=== PATIENT | male | born 1960 | race Caucasian/White ===

== ENCOUNTER 2019-07-15 14:53 | Inpatient (IN) | payer OTHER ==
[~2019-07-15] VITALS: Ht 177.8 cm; Wt 146.5 kg
[2019-07-15 16:00] LABS: BASOPHILS % (AUTO) 0.5 % (0.0-5.0); EOSINOPHILS % (AUTO) 1.2 % (0.0-8.0); HEMATOCRIT 27.9 % (42-54); MEAN CORPUSCULAR HEMOGLOBIN 30.3 pg (27.0-33.0); MEAN CORPUSCULAR HGB CONC 34.1 g/dL (32.0-36.0); MEAN CORPUSCULAR VOLUME 88.9 fL (79-99); MONOCYTES % (AUTO) 6.1 % (3.0-13.0); NEUTROPHILS % (AUTO) 75.9 % (40.0-77.0); PLATELET COUNT (AUTO) 94 K/uL (130-400); RED BLOOD CELL COUNT(AUTO) 3.14 MIL/uL (4.50-6.20); RED CELL DISTRIBUTION WIDTH 13.3 % (11.0-15.5); WHITE BLOOD COUNT (AUTO) 8.3 K/uL (4.8-10.8)
[2019-07-15 16:21] LABS: CREATININE 1.5 mg/dL (0.5-1.5); POTASSIUM 3.8 mmol/L (3.5-5.1)
[2019-07-15 16:23] LABS: INR 0.93 (0.85-1.15); PARTIAL THROMBOPLASTIN TIME 34.5 SEC (26.3-35.5); PROTHROMBIN TIME 10.1 SEC (9.6-11.6)
[2019-07-15 16:26] LABS: ALBUMIN 2.9 g/dL (3.5-5.0); BILIRUBIN,TOTAL 0.4 mg/dL (0.2-1.0); TOTAL PROTEIN, SERUM 7.4 g/dL (6.0-8.3)
[2019-07-15 16:30] LABS: B-TYPE NATRIURETIC PEPTIDE 123 pg/mL (0-100)
[2019-07-15] MEDS ORDERED: ONDANSETRON HCL 4 MG/2 ML VIAL IV PRN (18:45)
[2019-07-15] MEDS ORDERED: DEXTROSE 50%-WATER 50 ML DISP.SYRIN IV PRN (18:45)
[2019-07-15] MEDS ORDERED: NITROGLYCERIN 0.4 MG SL TAB SL PRN (18:45)
[2019-07-15] MEDS ORDERED: GLUCAGON 1MG KIT 1 MG ML IM PRN (18:45)
[2019-07-15] MEDS ORDERED: DIPHENHYDRAMINE HCL 25 MG CAPSULE PO PRN (18:45)
[2019-07-15] MEDS ORDERED: ACETAMINOPHEN 325 MG TAB PO PRN ×2 (18:45)
[2019-07-15] MEDS ORDERED: HEPARIN 25000 UNITS/250 ML D5W 250 ML IV ONE (20:02)
[2019-07-15] MEDS ORDERED: HEPARIN SODIUM 5000UNIT/ML 1ML VIAL ONE (20:02)
[2019-07-15 21:00] VITALS: BP 174/71
[2019-07-15] MEDS ORDERED: INSULIN HUMULIN R 100 UNIT/ML 3ML SQ SCH (21:00)
[2019-07-15] MEDS ORDERED: PROMETHAZINE HCL 25 MG TABLET PO PRN (21:15)
[2019-07-15] MEDS ORDERED: LORAZEPAM 2 MG/ML 1 ML VIAL IVP PRN ×2 (21:15)
[2019-07-15] MEDS ORDERED: CHLORDIAZEPOXIDE HCL 25 MG CAP PO PRN ×2 (21:15)
[2019-07-15] MEDS ORDERED: PHARMACY COMMUNICATION MISC PRN (21:15)
[2019-07-15] MEDS: FAMOTIDINE/PF 20 MG/2 ML VIAL IV SCH (21:46)
[2019-07-15] MEDS: SODIUM CHLORIDE 0.9% 1000ML 1,000 ML IV SCH (21:55)
[2019-07-15 21:59] LABS: AMPHET/METH SCREEN,URINE NEGATIVE (NEGATIVE); BARBITURATE SCREEN, URINE NEGATIVE (NEGATIVE); BENZODIAZEPINES SCREEN,URINE NEGATIVE (NEGATIVE); CANNABINOID SCREEN,URINE POSITIVE (NEGATIVE); COCAINE SCREEN,URINE NEGATIVE (NEGATIVE); OPIATE SCREEN,URINE NEGATIVE (NEGATIVE); PHENCYCLIDINE SCREEN,URINE NEGATIVE (NEGATIVE)
[2019-07-15] MEDS: CLONIDINE HCL 0.1 MG TABLET PO SCH (22:00)
[2019-07-15 22:29] LABS: PHOSPHORUS 3.2 mg/dL (2.5-4.9)
[2019-07-15 22:31] LABS: HEMOGLOBIN A1C 8.2 % (4.0-6.0)
[2019-07-15 22:37] LABS: ALCOHOL, BLOOD < 3 mg/dL (0-10)
[2019-07-15 22:54] LABS: BILIRUBIN,URINE Negative (NEGATIVE); COLOR,URINE Yellow (YELLOW); GLUCOSE, URINE (UA) >=1000 mg/dL (NEGATIVE); KETONES,URINE Negative (NEGATIVE); LEUKOCYTE ESTERASE ,URINE Negative (NEGATIVE); NITRATE,URINE Negative (NEGATIVE); OCCULT BLOOD,URINE Negative (NEGATIVE); PROTEIN,URINE Negative (NEGATIVE); UROBILINOGEN,URINE 0.2 mg/dL (0.2-1.0)
[2019-07-15 23:00] VITALS: BP 138/65
[2019-07-15] MEDS ORDERED: CLONIDINE HCL 0.1 MG TABLET ONE (23:07)
[2019-07-15 23:14] LABS: APPEARANCE,URINE SLIGHTLY CLOUDY (CLEAR)
[2019-07-15 23:37] LABS: BACTERIA,URINE None Seen /HPF (None Seen); RBC,URINE None Seen /HPF (0-1); SQUAMOUS EPITHELIAL CELL,UR Rare /HPF (0-2); WBC,URINE 0-1 /HPF (0-1); YEAST,URINE BUDDING None Seen /HPF (None Seen)
[2019-07-15 23:42] LABS: INR 0.92 (0.85-1.15); PARTIAL THROMBOPLASTIN TIME 32.5 SEC (26.3-35.5)
[2019-07-15] MEDS: HEPARIN 25000 UNITS/250 ML D5W 250 ML IV SCH (23:52)
[2019-07-16] MEDS: THIAMINE HCL 100 MG, FOLIC ACID 1 MG, M.V.I. IV [ADULT] 10 ML in SODIUM CHLORIDE 0.9% 1... IV SCH ×4
[2019-07-16] MEDS ORDERED: HEPARIN SODIUM 5000UNIT/ML 1ML VIAL ONE (00:10)
[2019-07-16 03:40] VITALS: BP 140/66
[2019-07-16] MEDS: SODIUM CHLORIDE 0.9% 1000ML 1,000 ML IV SCH ×3 (04:44→18:57)
--- NOTE | 2019-07-16 05:00 | NUR ---
PATIENT UPDATE Admitted a 59 yr old male from [place] with cc of swelling in ble since . Unsteady with walking, uncomfortable doing his adl's which prompted thge pt to seek admission in the hospital. Doppler study did reveal a dvt to the rt popliteal vein and was started on the Heparin drip as per weight based protocol. Pt was on eliquis bec of hx of intermittent afib, last dose taken yesterday. Dr. Tolliver was consulted who ordered to hold the eliquis and continue with the heparin drip. Pt was very upset on admission, stated that he's been in ER for 7 hrs and nothing had been done. Heparin drip started per protocol, NS at 100 cc/hr. Face flushed, with gen redness, pt with hx of eczema and presently getting treatment for psoriasis, behadryl 25 mg cap given for severe itching. Placed on tele monitoring , running normal sinus rhythm bet 70's to 80's, no ectopies noted. Was given clonidine 0.1 mg last night for blood pressure of 174/71 mmhg, latest bp at 140/66mmhg. Blood sugar on adm was at 500, denies having major problems with blood sugar control, 18 units of humulin r given per s/s no. 2. With polysubstance abuse, smokes marijuana 2-5 pcs per day and drinks bet simple beers to hard liquor around 12 packs per week, used to drink a pack per day. CIWA score at 6 on admission, stated that last drink was 4 days ago and claims that he never had problems with withdrawal symptoms. To be started on a banana bag this am.Slept very well overnight after the benadryl was administered, ble elevated on pillows. Doppler studies also done for the rle also bec it's also swollen, negative for dvt. Vital signs stable, on fall, aspiration and seizure precaution. Pt stated that last fall episode was a month ago, pau continue to monitor.
[2019-07-16] MEDS: CLONIDINE HCL 0.1 MG TABLET PO SCH ×2 (06:00→14:00)
[2019-07-16] MEDS: INSULIN HUMULIN R 100 UNIT/ML 3ML SQ SCH ×4 (06:02→20:56)
[2019-07-16 06:58] LABS: HEMATOCRIT 31.3 % (42-54); MEAN CORPUSCULAR HGB CONC 33.2 g/dL (32.0-36.0); MEAN CORPUSCULAR VOLUME 90.2 fL (79-99); PLATELET COUNT (AUTO) 111 K/uL (130-400); RED BLOOD CELL COUNT(AUTO) 3.47 MIL/uL (4.50-6.20); RED CELL DISTRIBUTION WIDTH 13.6 % (11.0-15.5); WHITE BLOOD COUNT (AUTO) 7.7 K/uL (4.8-10.8)
[2019-07-16 07:18] LABS: BILIRUBIN,TOTAL 0.4 mg/dL (0.2-1.0); CREATININE 1.2 mg/dL (0.5-1.5); MAGNESIUM 1.7 mg/dL (1.80-2.40); TOTAL PROTEIN, SERUM 7.6 g/dL (6.0-8.3)
[2019-07-16 07:26] VITALS: BP 142/63
[2019-07-16 07:37] LABS: INR 0.95 (0.85-1.15); PROTHROMBIN TIME 10.3 SEC (9.6-11.6)
[2019-07-16 07:47] LABS: BASOPHILS % (MANUAL) 1 % (0-2); EOSINOPHILS % (MANUAL) 2 % (1-6); LYMPHOCYTES % (MANUAL) 24 % (22-44); MAN.DIFF COMMENT-IMPRESSION MANUAL DIFFERENTIAL; MONOCYTES % (MANUAL) 5 % (2-9); PLATELET MORPHOLOGY COMMENT ADEQUATE; SEGMENTED NEUTROPHILS % 68 % (40-70)
[2019-07-16] MEDS ORDERED: FOLIC ACID 1 MG TABLET PO SCH (09:00)
[2019-07-16] MEDS ORDERED: MULTIVITAMIN TABLET PO SCH (09:00)
[2019-07-16 09:27] LABS: % IRON SATURATION 19.2 % (30-44)
[2019-07-16] MEDS: FAMOTIDINE/PF 20 MG/2 ML VIAL IV SCH ×2 (09:28→20:40)
[2019-07-16] MEDS: THIAMINE HCL 100 MG/ML 2ML VIAL IM SCH (09:29)
--- NOTE | 2019-07-16 09:42 | NUR ---
HEPARIN DRIP RECEIVED PTT AT 0921, ADVISED GREATER THAN 120. DRIP PLACED ON HOLD FOR 60 MINUTES, RATE TO BE REDUCED FROM 2200 UNITS/HR TO 2000 UNITS/HR PER PROTOCOL.
[2019-07-16] MEDS ORDERED: METO200T49 PO (11:32)
[2019-07-16] MEDS ORDERED: HYDR-3421 PO (11:32)
[2019-07-16] MEDS ORDERED: SERT100T12 PO (11:32)
[2019-07-16] MEDS ORDERED: APIX5TAB PO (11:32)
[2019-07-16] MEDS ORDERED: LISI10TA7 PO (11:32)
[2019-07-16] MEDS ORDERED: MONT10TA26 PO (11:32)
[2019-07-16] MEDS ORDERED: DILT360C32 PO (11:32)
[2019-07-16] MEDS ORDERED: MULT1TAB66 PO (11:32)
[2019-07-16] MEDS ORDERED: QUET300T44 PO (11:32)
[2019-07-16] MEDS ORDERED: GABA-529 PO (11:32)
[2019-07-16] MEDS ORDERED: OMEP20CA12 PO (11:32)
[2019-07-16] MEDS ORDERED: GLIP5TAB11 PO ×2 (11:32)
[2019-07-16] MEDS ORDERED: PRAZ2CAP2 PO (11:32)
[2019-07-16] MEDS ORDERED: CYAN-52 PO (11:32)
[2019-07-16] MEDS ORDERED: ROPI5TAB4 PO (11:32)
--- NOTE | 2019-07-16 11:47 | NUR ---
DERMOTOLOGY CONSULT CALLED DR. QUINN AT [phone], LEFT MESSAGE REGARDING REQUESTED CONSULT, LEFT NAME AND CALL BACK #. IF NO RESPONSE WILL PASS INFO IN REPORT TO RETRY AGAIN ON Wednesday.
[2019-07-16 12:00] VITALS: BP 143/61
[2019-07-16] MEDS: HEPARIN 25000 UNITS/250 ML D5W 250 ML IV SCH (12:12)
[2019-07-16] MEDS ORDERED: TRIAMCINOLONE ACET TP SCH (12:30)
[2019-07-16] MEDS ORDERED: HYDROXYZINE HCL 25 MG TABLET PO PRN (15:00)
[2019-07-16 16:00] VITALS: BP 146/74
[2019-07-16] MEDS ORDERED: GLIPIZIDE 5 MG TABLET PO SCH (16:30)
[2019-07-16 16:55] LABS: INR 0.92 (0.85-1.15); PARTIAL THROMBOPLASTIN TIME 64.4 SEC (26.3-35.5)
[2019-07-16 19:00] VITALS: BP 149/65
--- NOTE | 2019-07-16 19:50 | NUR ---
D/C PLAN CM spoke to pt regarding d/c planning. Pt is ind. and lives alone. States he is a winter [place] and is visiting from [place]. Plan is to return home. Pt has friends that can assist in care if needed. No needs verbalized or identified. Plan to home. CM to f/u. Addendum: 07/16/19 at 1951 by KIKO JIMENEZ CM Amended: Links added.
[2019-07-16] MEDS: GABAPENTIN 100 MG CAPSULE PO SCH (20:39)
[2019-07-16] MEDS: TRIAMCINOLONE 0.025% 15 GM CREAM TP SCH (20:40)
[2019-07-16] MEDS ORDERED: ROPINIROLE HCL 5 MG TABLET PO SCH (21:00)
[2019-07-16] MEDS ORDERED: MONTELUKAST SODIUM 10 MG TAB PO SCH (21:00)
[2019-07-16] MEDS ORDERED: PRAZOSIN HCL 4 MG PO SCH (21:00)
[2019-07-16 22:16] LABS: INR 0.88 (0.85-1.15); PARTIAL THROMBOPLASTIN TIME 32.5 SEC (26.3-35.5); PROTHROMBIN TIME 9.6 SEC (9.6-11.6)
[2019-07-16] MEDS: APIXABAN 5 MG TABLET PO SCH (22:25)
[2019-07-16 23:00] VITALS: BP 136/76
--- NOTE | 2019-07-16 23:55 | NUR ---
IV PATIENT'S IV NON PATIENT AND WAS REMOVED AT 2039. PATIENT WAS RECEIVING HEPARIN PER PROTOCOL AND WAS PLACED ON HOLD DUE TO LACK OF IV. IV ACCESS WAS DIFFICULT TO OBTAIN. IV WAS FINALLY ABLE TO BE PLACED AT 2329.
[2019-07-17 03:00] VITALS: BP 145/73
[2019-07-17] MEDS: INSULIN HUMULIN R 100 UNIT/ML 3ML SQ SCH ×2 (06:31→11:27)
[2019-07-17 07:24] VITALS: BP 157/62
[2019-07-17] MEDS ORDERED: GLIPIZIDE 5 MG TABLET PO SCH (07:30)
[2019-07-17] MEDS ORDERED: MULTIVITAMIN TABLET PO SCH (09:00)
[2019-07-17] MEDS ORDERED: SERTRALINE HCL 50 MG TABLET PO SCH (09:00)
[2019-07-17] MEDS ORDERED: CYANOCOBALAMIN (VITAMIN B-12) 1,000 MCG TABLET PO SCH ×2 (09:00)
[2019-07-17] MEDS ORDERED: LISINOPRIL 10 MG TABLET PO SCH (09:00)
[2019-07-17] MEDS ORDERED: PANTOPRAZOLE SODIUM 40 MG TABLET.DR PO SCH (09:00)
[2019-07-17] MEDS ORDERED: FOLIC ACID 1 MG TABLET PO SCH (09:00)
[2019-07-17] MEDS ORDERED: METOPROLOL SUCCINATE 50 MG TAB.SR.24H PO SCH (09:00)
[2019-07-17] MEDS ORDERED: DILTIAZEM HCL 180 MG CAP.SR.24H PO SCH (09:00)
[2019-07-17] MEDS: SODIUM CHLORIDE 0.9% 1000ML 1,000 ML IV SCH (09:12)
[2019-07-17] MEDS: APIXABAN 5 MG TABLET PO SCH (09:14)
[2019-07-17] MEDS: GABAPENTIN 100 MG CAPSULE PO SCH (09:16)
[2019-07-17] MEDS: FAMOTIDINE/PF 20 MG/2 ML VIAL IV SCH (09:17)
[2019-07-17] MEDS: THIAMINE HCL 100 MG/ML 2ML VIAL IM SCH (09:17)
[2019-07-17] MEDS: TRIAMCINOLONE 0.025% 15 GM CREAM TP SCH (09:18)
--- NOTE | 2019-07-17 10:44 | NUR ---
DR QUINN/CONSULT CALLED DR QUINN OFFICE REGARDING CONSULT. PER PRESS OPERATOR HELPER- MD IS ON VACATION. [facility]
[2019-07-17] MEDS: THIAMINE HCL 100 MG, FOLIC ACID 1 MG, M.V.I. IV [ADULT] 10 ML in SODIUM CHLORIDE 0.9% 1... IV SCH ×5 (11:49)
[2019-07-17 12:08] VITALS: BP 154/60
[2019-07-17] MEDS ORDERED: APIX5TAB PO (13:28)
[2019-07-17] MEDS ORDERED: QUETIAPINE FUMARATE 100 MG TAB PO SCH (21:00)
== END 2019-07-17 15:25 | disposition home or self-care (01) | DRG 300 ==
LOC: EDH 14:53 → EDHIP 18:20 → 3CH 21:05
PROVIDERS: ADMIT Hospitalist; ATTEND Hospitalist
DX: I82.432 Acute embolism and thrombosis of left popliteal vein (principal); E87.1 Hypo-osmolality and hyponatremia; Z68.42 Body mass index [BMI] 45.0-49.9, adult; E11.65 Type 2 diabetes mellitus with hyperglycemia; F10.20 Alcohol dependence, uncomplicated; E66.01 Morbid (severe) obesity due to excess calories; D64.9 Anemia, unspecified; E78.5 Hyperlipidemia, unspecified; I10 Essential (primary) hypertension; F12.90 Cannabis use, unspecified, uncomplicated; F31.9 Bipolar disorder, unspecified; I48.0 Paroxysmal atrial fibrillation; R59.0 Localized enlarged lymph nodes; Z79.01 Long term (current) use of anticoagulants; Z91.19 Patient's noncompliance with other medical treatment and regimen; Z88.8 Allergy status to other drugs, medicaments and biological substances; Y90.0 Blood alcohol level of less than 20 mg/100 ml; L40.8 Other psoriasis
CPT/HCPCS: 36415; 71045; 71250; 74176; 80053; 80305; 81001; 82550; 82607; 82746; 82948; 83036; 83540; 83550; 83735; 83880; 84100; 84484; 85025; 85610; 85730; 93005; 93971; G0378; G0480; J1644; J1815; J3411; J3490; J7030; Q0163

== ENCOUNTER 2019-09-28 09:48 | Emergency (ER) | payer OTHER ==
[~2019-09-28] VITALS: Ht 182.9 cm; Wt 132.9 kg
[2019-09-28] MEDS ORDERED: ZOSYN 3.375GM+NS 50ML 50 ML IV ONE (10:34)
[2019-09-28] MEDS ORDERED: SODIUM CHLORIDE 0.9% 1000ML 1,000 ML IV ONE ×2 (10:37→13:42)
[2019-09-28] MEDS ORDERED: VANCOMYCIN 2 GM in SODIUM CHLORIDE 0.9% 500ML 500 ML IV SCH (11:30)
[2019-09-28] MEDS ORDERED: COMPOUND IV REFRIGERATED 1 EACH IVSOLN MISC PRN (11:30)
[2019-09-28] MEDS ORDERED: INSULIN HUMULIN R 100 UNIT/ML 3ML ONE (12:13)
[2019-09-28] MEDS ORDERED: IBUPROFEN 400 MG TABLET ONE (13:47)
== END 2019-09-28 15:16 | disposition home or self-care (01) ==
LOC: EDH 09:48
DX: B02.21 Postherpetic geniculate ganglionitis (principal); E11.65 Type 2 diabetes mellitus with hyperglycemia; L03.211 Cellulitis of face; F31.9 Bipolar disorder, unspecified; E78.00 Pure hypercholesterolemia, unspecified; I10 Essential (primary) hypertension; Z88.8 Allergy status to other drugs, medicaments and biological substances
CPT/HCPCS: 36415; 36600; 70486; 80048; 80076; 81001; 82010; 82803; 82948 ×3; 83605; 85025; 85610; 85730; 87040 ×2; 93005; 96365; 96366; 96367; 96375; 99285; J1815; J2543; J3370; J7030 ×2; J7040

== ENCOUNTER → 2019-11-16 | Outpatient (CLI) | payer OTHER ==
[~2019-11-16] MED LIST: APIX5TAB PO; CYAN-52 PO; DILT360C32 PO; GABA-529 PO; GLIP5TAB11 PO; HYDR-3421 PO; LISI10TA7 PO; LORA10TA7 PO; METF-446 PO; METO200T49 PO; MONT10TA26 PO; MULT1TAB66 PO; OMEP20CA12 PO; PRAZ2CAP2 PO; QUET300T44 PO; ROPI5TAB4 PO; SERT100T12 PO; glargine insulin SQ
[2019-11-16 13:27] LABS: POTASSIUM 5.1 mmol/L (3.5-5.1)
--- NOTE | 2019-11-20 09:48 | NUR ---
REPORT CALLED DR CASTRO AND SPOKE TO NANCY INFORMED PT TESTED POSITIVE FOR COVID 19. OFFICE WILL NOTIFY PT.
== END ==
LOC: DAH 10:00 → EDSTATUS 12-12 09:20
PROVIDERS: ATTEND Otolaryngology Plastic Surgery within the Head & Neck
DX: Z01.818 Encounter for other preprocedural examination (principal); Z11.59 Encounter for screening for other viral diseases
CPT/HCPCS: 36415; 80048; A6260; U0003

== ENCOUNTER 2019-12-12 07:38 | Day surgery (SDC) | payer OTHER ==
[2019-12-07 11:34] LABS: POTASSIUM 4.3 mmol/L (3.5-5.1)
[2019-12-12] VITALS (18 sets, daily range): BP systolic 106–193; BP diastolic 44–90
[~2019-12-12] VITALS: Ht 180.3 cm; Wt 141.6 kg
[~2019-12-12 07:38] MED LIST changes: -LORA10TA7 PO; -METF-446 PO; -glargine insulin SQ
[2019-12-12] MEDS ORDERED: SODIUM CHLORIDE 0.9% 1000ML 1,000 ML IV ONE (07:42)
[2019-12-12] MEDS ORDERED: LORA10TA7 PO (08:12)
[2019-12-12] MEDS ORDERED: glargine insulin SQ (08:12)
[2019-12-12] MEDS ORDERED: METF-446 PO (08:12)
--- NOTE | 2019-12-12 08:15 | NUR ---
SKIN HX PSORIASIS , REDNESS ,RED SPOTS , DRY PATCHES TO ALL EXTREMITIES. Addendum: 12/12/19 at 0819 by BRANDEE BARKSDALE RN Amended: Links added.
[2019-12-12] MEDS ORDERED: FENTANYL CITRATE PF 50 MCG/1 ML 2ML VIAL ONE ×2 (08:43→11:00)
[2019-12-12] MEDS ORDERED: MIDAZOLAM HCL 1 MG/ML 2ML VIAL ONE (08:43)
[2019-12-12] MEDS ORDERED: PROPOFOL 10 MG/ML 20ML VIAL IV ONE ×2 (08:46→09:40)
[2019-12-12] MEDS ORDERED: LIDOCAINE HCL 1% MDV 50ML VIAL ONE (09:24)
[2019-12-12] MEDS ORDERED: NEOMY SULF/BACITRAC ZN/POLY OINT 30GM TUBE TP ONE (09:24)
[2019-12-12] MEDS ORDERED: EPINEPHRINE 1 MG/ML AMPULE ONE (09:24)
[2019-12-12] MEDS ORDERED: CEFAZOLIN SODIUM 1 GM VIAL ONE (09:55)
== END 2019-12-12 13:49 | disposition home or self-care (01) ==
LOC: DAH 07:38
PROVIDERS: ATTEND Otolaryngology Plastic Surgery within the Head & Neck
DX: H70.11 Chronic mastoiditis, right ear (principal); H66.3X1 Other chronic suppurative otitis media, right ear; H72.821 Total perforations of tympanic membrane, right ear; H61.391 Other acquired stenosis of right external ear canal; K21.9 Gastro-esophageal reflux disease without esophagitis; E11.9 Type 2 diabetes mellitus without complications; E66.01 Morbid (severe) obesity due to excess calories; I48.91 Unspecified atrial fibrillation; I10 Essential (primary) hypertension; Z79.84 Long term (current) use of oral hypoglycemic drugs; Z11.59 Encounter for screening for other viral diseases; Z79.899 Other long term (current) drug therapy; Z98.1 Arthrodesis status; Z88.8 Allergy status to other drugs, medicaments and biological substances
CPT/HCPCS: 36415; 69646; 80048; 82948 ×2; 88305; A4215; A4221; A4222; A4223; A4452; A4649; A4663; A6446; C9803; J0171; J0690; J2250; J2704 ×2; J3010 ×2; J3490; J7030; J7040; J7120; U0003